=== PATIENT | female | born 1995 | race Caucasian/White ===

== ENCOUNTER → 2016-12-28 | Outpatient (CLI) | payer OTHER | LOC: COL.RAD 07:30 | DX: S82.141A Displaced bicondylar fracture of right tibia, initial encounter for closed fracture (principal); S80.01XA Contusion of right knee, initial encounter ==

== ENCOUNTER 2017-06-22 17:16 | Emergency (ER) | payer MEDICAID ==
[~2017-06-22] VITALS: Ht 165.1 cm; Wt 60.0 kg
[2017-06-22] MEDS ORDERED: PRENATAL1 TA7 PO (17:20)
[2017-06-22] MEDS ORDERED: LEVOXYL0.075 MG PO (17:21)
[2017-06-22 18:02] LABS: BASO % 0.4 % (0.0-2.0); EOS # 0.1 (0.0-0.7); EOS % 1.4 % (0-4.0); GRAN # 4.8 (1.4-6.5); HEMOGLOBIN 12.5 g/dl (12.5-16.0); LYMPH # 2.1 (1.2-3.4); LYMPH % 28.1 % (20.0-51.0); MEAN CELL VOLUME 83 fl (80.0-100.0); MEAN CORPUSCULAR HEMOGLOBIN 29 pg (27.0-31.0); MEAN CORPUSCULAR HGB CONC 35 g/dl (33.0-37.0); MEAN PLATELET VOLUME 8.9 fl (7.4-10.4); MONO # 0.5 (0.1-0.6); PLATELET COUNT 225 K/mm3 (130-400); RED BLOOD COUNT 4.31 M/mm3 (4.10-5.30); REDCELL DISTRIBUTION WIDTH-CV 12.6 % (11.5-14.5)
[2017-06-22 18:03] LABS: HEMATOCRIT 35.9 % (37.0-47.0)
[2017-06-22 18:24] VITALS: BP 115/66; TEMP 98.1
[2017-06-22 18:44] LABS: COLLECTION METHOD CLEAN CATCH
[2017-06-22 18:50] LABS: MUCOUS Present /lpf; PH 5 (5-8); SQUAMOUS EPITHELIAL 0-2 /hpf; URINE APPEARANCE Hazy; URINE BACTERIA Rare /hpf; URINE BILIRUBIN Negative (NEGATIVE); URINE BLOOD Negative (NEGATIVE); URINE COLOR Yellow; URINE GLUCOSE Negative (NEGATIVE); URINE KETONE Negative (NEGATIVE); URINE LEUKOCYTE ESTERASE Negative (NEGATIVE); URINE NITRATE Negative (NEGATIVE); URINE PROTEIN(semi-quant) Negative (NEGATIVE); URINE RBC 0-2 /hpf; URINE UROBILINOGEN Negative (NEGATIVE)
[2017-06-22 19:19] VITALS: PULSE 71
== END 2017-06-22 19:18 | disposition home or self-care (01) ==
LOC: COL.ER 17:16
PROVIDERS: Emergency Medicine; Nurse Practitioner
DX: O20.0 Threatened abortion (principal); Z3A.09 9 weeks gestation of pregnancy; Z88.0 Allergy status to penicillin

== ENCOUNTER 2017-07-05 05:53 | Day surgery (SDC) | payer MEDICAID ==
[2017-07-05] VITALS (20 sets, daily range): BP systolic 76–114; BP diastolic 46–73; PULSE 64–100; TEMP 97.4–98.4
[~2017-07-05] VITALS: Ht 165.1 cm; Wt 61.4 kg
[~2017-07-05 05:53] MED LIST: LEVOXYL0.075 MG PO; PRENATAL1 TA7 PO
[2017-07-05] MEDS ORDERED: PERCOCET 325 MG1 TA2 PO (09:11)
[2017-07-05] MEDS ORDERED: IBU600 MG PO (09:11)
[2017-07-05 10:27] LABS: HEMOGLOBIN 10.2 g/dl (12.5-16.0)
[2017-07-05 10:29] LABS: HEMATOCRIT 29.3 % (37.0-47.0)
[2017-07-05 18:18] LABS: HEMATOCRIT 27.7 % (37.0-47.0); HEMOGLOBIN 9.6 g/dl (12.5-16.0)
[2017-07-06 00:31] VITALS: BP 89/47; PULSE 71; TEMP 97.8
[2017-07-06 04:55] VITALS: BP 95/51; PULSE 78; TEMP 98.4
[2017-07-06 05:28] LABS: HEMATOCRIT 26.6 % (37.0-47.0); HEMOGLOBIN 9.2 g/dl (12.5-16.0)
[2017-07-06 07:45] VITALS: BP 84/48; PULSE 75; TEMP 98.6
[2017-07-06 11:15] VITALS: BP 90/54; PULSE 78; TEMP 98.7
[2017-07-06 15:10] VITALS: BP 90/53; PULSE 80; TEMP 98.1
== END 2017-07-06 17:40 | disposition home or self-care (01) ==
LOC: SDCO 05:53 → OB 13:15 → SDCO 07-06 17:40
PROVIDERS: Obstetrics & Gynecology
DX: O02.1 Missed abortion (principal); O03.34 Damage to pelvic organs following incomplete spontaneous abortion; K66.1 Hemoperitoneum; O99.011 Anemia complicating pregnancy, first trimester; D62 Acute posthemorrhagic anemia; O26.51 Maternal hypotension syndrome, first trimester; O99.281 Endocrine, nutritional and metabolic diseases complicating pregnancy, first trimester; E03.9 Hypothyroidism, unspecified; Z3A.10 10 weeks gestation of pregnancy
CPT/HCPCS: OP; A4314; J0690; J1885; J2210; J2270; J2405; J2550; J2704; J3010; J7030; J7120; P9016

== ENCOUNTER 2017-07-08 22:43 | Emergency (ER) | payer SELFPAY ==
[~2017-07-08] VITALS: Ht 165.1 cm; Wt 61.4 kg
[~2017-07-08 22:43] MED LIST changes: +IBU600 MG PO; +PERCOCET 325 MG1 TA2 PO
[2017-07-08 22:49] VITALS: TEMP 98.2
[2017-07-08 23:13] LABS: BASO % 0.4 % (0.0-2.0); EOS # 0.2 (0.0-0.7); EOS % 4.1 % (0-4.0); GRAN # 2.4 (1.4-6.5); GRAN % 52.7 % (42.2-75.2); LYMPH # 1.6 (1.2-3.4); LYMPH % 35.4 % (20.0-51.0); MEAN CELL VOLUME 85 fl (80.0-100.0); MEAN CORPUSCULAR HGB CONC 35 g/dl (33.0-37.0); MEAN PLATELET VOLUME 8.6 fl (7.4-10.4); MONO # 0.3 (0.1-0.6); MONO % 7.2 % (1.7-9.3); PLATELET COUNT 240 K/mm3 (130-400); RED BLOOD COUNT 4.04 M/mm3 (4.10-5.30); REDCELL DISTRIBUTION WIDTH-CV 13.7 % (11.5-14.5)
[2017-07-08 23:15] LABS: HEMATOCRIT 34.3 % (37.0-47.0); MEAN CORPUSCULAR HEMOGLOBIN 30 pg (27.0-31.0)
[2017-07-08 23:24] LABS: ALBUMIN 3.4 gm/dL (3.5-5.0); BILIRUBIN,TOTAL 0.3 mg/dL (0.0-1.0); CALCIUM 8.9 mg/dL (8.4-10.2); CREATININE, serum 0.72 mg/dL (0.52-1.25); POTASSIUM 3.8 mmol/L (3.4-5.0); TOTAL PROTEIN 6.6 gm/dL (6.4-8.2)
[2017-07-09] MEDS ORDERED: PERCOCET 325 MG1 TA2 PO (02:22)
[2017-07-09 02:40] VITALS: BP 103/58; PULSE 61
== END 2017-07-09 02:40 | disposition home or self-care (01) ==
LOC: COL.ER 22:43
PROVIDERS: Emergency Medicine
DX: N99.820 Postprocedural hemorrhage of a genitourinary system organ or structure following a genitourinary system procedure (principal); G89.18 Other acute postprocedural pain; R10.30 Lower abdominal pain, unspecified; E03.9 Hypothyroidism, unspecified; Z98.890 Other specified postprocedural states
CPT/HCPCS: J1170; J1885; J2405; J3010; J7030